=== PATIENT | male | born 1995 | race African-American/Black ===

== ENCOUNTER 2021-11-28 04:49 | Emergency (ER) | payer MEDICAID ==
[~2021-11-28] VITALS: Ht 180.3 cm; Wt 82.0 kg
[2021-11-28 04:54] VITALS: BP 142/98
[2021-11-28] MEDS ORDERED: SODIUM CHLORIDE 0.9% 1,000 ML IV ONE (05:30)
[2021-11-28] MEDS ORDERED: ASPIRIN 325MG EC TABLET PO ONE (05:30)
[2021-11-28 06:00] LABS: HEMATOCRIT. 40.9 % (42.0-52.0); HEMOGLOBIN. 14.2 g/dL (14.0-18.0); MEAN CORPUSCULAR HEMOGLOBIN 30.4 pg (28.0-32.0); MEAN CORPUSCULAR VOLUME 87.6 fL (80.0-94.0); MEAN PLATELET VOLUME 8.2 fl (7.4-10.4); PLATELET 284 x1000/uL (130-400); RED BLOOD CELL COUNT 4.67 mill/uL (4.7-6.1); RED CELL DISTRIBUTION WIDTH 13.6 % (11.6-14.6)
[2021-11-28 06:07] LABS: CHLORIDE 101 mEq/L (98-107)
[2021-11-28 06:55] LABS: PLATELET ESTIMATE NORMAL
== END 2021-11-28 07:20 | disposition left against medical advice (07) ==
LOC: ER 04:49
DX: R07.9 Chest pain, unspecified (principal); F32.9 Major depressive disorder, single episode, unspecified; Z87.891 Personal history of nicotine dependence
CPT/HCPCS: 36415; 71045; 80053; 83880; 84484; 85025; 93005; 96360; 99285; J7030; Z7610

== ENCOUNTER 2025-05-22 17:33 | Emergency (ER) | payer MEDICAID ==
[~2025-05-22] VITALS: Ht 167.6 cm; Wt 89.0 kg
[2025-05-22 21:12] VITALS: O2SAT 98
[2025-05-22] MEDS: KETOROLAC 30MG/ML VIAL IM ONE (21:38)
[2025-05-22] MEDS: HYDROCODONE/ACETAMINOPHEN 5/325MG TABLET PO ONE (21:39)
[2025-05-22] MEDS ORDERED: NAPR-681 PO (23:07)
[2025-05-22] MEDS ORDERED: HYDR-4001 MT (23:07)
[2025-05-22 23:37] VITALS: BP 133/50; PULSE 56; RESP 18; TEMP 37.1; O2SAT 99
== END 2025-05-22 23:38 | disposition home or self-care (01) ==
LOC: ER 17:33
DX: S83.92XA Sprain of unspecified site of left knee, initial encounter (principal); M25.552 Pain in left hip; I10 Essential (primary) hypertension; X50.9XXA Other and unspecified overexertion or strenuous movements or postures, initial encounter; Y93.01 Activity, walking, marching and hiking; Y92.89 Other specified places as the place of occurrence of the external cause; Y99.8 Other external cause status
CPT/HCPCS: 73502; 73560; 96372; 99284; J1885; A6449; Z7610